=== PATIENT | female | born 1985 | race Caucasian/White ===

== ENCOUNTER 2020-01-05 11:53 | Emergency (ER) | payer OTHER, SELFPAY ==
[2020-01-05 12:09] VITALS: BP 113/74; PULSE 72; RESP 20; TEMP 36.8; O2SAT 100
--- NOTE | 2020-01-05 12:54 | ED.HA ---
HPI - Headache General Chief Complaint: Headache Stated Complaint: blurry vision Time Seen by Provider: 01/05/20 12:20 Source: patient and RN notes reviewed Mode of arrival: ambulatory Limitations: no limitations History of Present Illness HPI Narrative: Patient presents today complaining of a 1 hour history of right-sided headache. It began today as she was sitting in front of her computer. Pain is located behind the right eye, radiating to the right occiput, and into the right ear. The headache is almost fully resolved, but pain in the ear persists at a 4/10. Reports that upon onset of symptoms, she also had some bilateral blurred vision. This symptom has also fully resolved prior to arrival. Patient did drive herself to the clinic today. Patient has history of ocular migraines, but has not had one since 2014. She does not take any maintenance medications for migraines. She has not tried any interventions for her symptoms prior to arrival. This is not her worst headache ever. Blurred vision symptoms are consistent with previous migraines. She is having some mild photophobia as well. MD elicited complaint: migraine Related Data Home Medications Medication Instructions Recorded Confirmed dextroamphetamine-amphetamine 5 mg PO BID 01/05/20 01/05/20 [Adderall] Allergies Allergy/AdvReac Type Severity Reaction Status Date / Time Penicillins Allergy Intermediate rash Verified 01/05/20 12:16 melon Allergy Unknown Itching Verified 01/05/20 12:16 Review of Systems Review of Systems: Narrative: CONSTITUTIONAL: Denies body aches, fever, chills, or sweats. EYES: Denies redness, or discharge.+blurred vision-resolved, photophobia ENT: Denies rhinorrhea, congestion, sore throat. + Right ear pain CARDIOVASCULAR: Denies chest pain, palpitations, or edema. RESPIRATORY: Denies cough or dyspnea. GASTROINTESTINAL: Denies abdominal pain, nausea, vomiting, or diarrhea. GENITOURINARY: Denies dysuria or hematuria. SKIN: Denies rash, itching, or wounds. MUSCULOSKELETAL: Denies back pain, joint pain, or myalgia. NEUROLOGIC: Denies numbness, tingling, or weakness. +headache-resolved PSYCH: Denies depression or anxiety. [facility] Past Medical History Medical History (Updated 01/05/20 @ 13:11 by Shira Mccracken, [employer], ) ADHD Anxiety Depression Ocular migraine Comments At time of signature, I have reviewed and agree with nursing past medical, surgical, social and family history unless otherwise noted. Please see nursing chart for further information. There is no relevant family history pertinent to the presenting complaint Exam Narrative: Exam Narrative: GENERAL: Well-appearing, well-nourished, and in no acute distress. HEAD: Normocephalic, atraumatic. EYES: EOMI. PERRL. No redness or drainage. Conjunctivae normal. ENT: Mucous membranes pink and moist. Nares clear. No rhinorrhea. Right TM is slightly bulging with clear fluid without injection or redness. Left TM normal. Tenderness to right eustachian tube. Throat normal. Uvula midline. NECK: Normal AROM. Supple. 1 tender lymph node of the anterior cervical chain, at the TM joint. CHEST: No respiratory distress. Clear to auscultation. HEART: Regular rate and rhythm. No murmur appreciated. Normal peripheral pulses. MUSCULOSKELETAL: No bony tenderness. EXTREMITIES: Normal range of motion. No edema. SKIN: Warm, dry, no rash. Capillary refill normal. Normal skin turgor. NEURO: No focal deficits. Alert and oriented x3. Gait steady. PSYCH: Normal affect. No signs of depression or anxiety. Course Vital Signs Vital signs: Vital Signs Temperature 98.3 F 01/05/20 12:09 Pulse Rate 72 01/05/20 12:09 Respiratory Rate 01/05/20 12:09 Blood Pressure 113/74 01/05/20 12:09 Pulse Oximetry 100 01/05/20 12:09 Temperature 98.3 F 01/05/20 12:09 Pulse Rate 72 01/05/20 12:09 Respiratory Rate 01/05/20 12:09 Blood Pressure 113/74 01/05/20 12:09 Pul
== END 2020-01-05 13:06 | disposition home or self-care (01) ==
PROVIDERS: Emergency Provider Nurse Practitioner
DX: R51 Headache (principal); H69.91 Unspecified Eustachian tube disorder, right ear; H65.01 Acute serous otitis media, right ear; F90.9 Attention-deficit hyperactivity disorder, unspecified type
CPT/HCPCS: 99213; G0463

== ENCOUNTER 2021-02-12 16:42 | Outpatient (CLI) | payer OTHER, SELFPAY ==
--- NOTE | ~2021-02-12 | XR_ITS ---
EXAMINATION: XR chest 2V DATE: 02/12/2021 17:09 INDICATION: Preoperative clearance TECHNIQUE: frontal and lateral views of the chest were obtained. COMPARISON: None FINDINGS: The lungs are clear with no focal airspace opacities, pulmonary edema, pleural effusion or pneumothor ax. The cardiomediastinal silhouette is normal. Mild midthoracic spondylosis. IMPRESSION: 1. No acute cardiopulmonary disease. Reviewed, dictated and finalized at location B.
--- NOTE | ~2021-02-12 | MM_ITS ---
EXAMINATION: MM screening chon BI w belle HISTORY: Screening mammogram, family history of breast cancer in her mother at age 55. TECHNIQUE: Craniocaudal and mediolateral oblique 3-D tomosynthesis images were obtained and synthetic 2-D images were generated. CAD analysis was submitted and interpreted. COMPARISON: None, baseline BREAST PARENCHYMAL COMPOSITION: There are scattered areas of fibroglandular density. FINDINGS: There is no evidence of suspicious mass, calcification, or architectural distortion to sugg est malignancy in either breast. IMPRESSION: 1. No mammographic evidence of malignancy. 2. Recommend routine screening mammography beginning at age 40. BI-RADS Category 1: Negative Reviewed, dictated and finalized at location A.
== END 2021-02-12 16:43 ==
PROVIDERS: PCP Internal Medicine; Visit Provider Internal Medicine
DX: Z12.31 Encounter for screening mammogram for malignant neoplasm of breast (principal); Z20.818 Contact with and (suspected) exposure to other bacterial communicable diseases
CPT/HCPCS: 71046; 77063; 77067

== ENCOUNTER 2021-08-04 11:06 | Emergency (ER) | payer OTHER, SELFPAY ==
--- NOTE | 2021-08-04 11:13 | ED.URI ---
HPI - URI/Sore Throat General Chief Complaint: Upper Respiratory Infection Stated Complaint: Sore Throat,Body Aches,Fever Time Seen by Provider: 08/04/21 11:13 Source: patient Mode of arrival: ambulatory Limitations: no limitations History of Present Illness HPI Narrative: 36-year-old female presents with complaint of fever, chills, body aches, sore throat, congestion, fatigue, mild cough for 2 days. Patient did get her flu vaccine 3 months ago. Has been taking Tylenol to treat symptoms. Denies nausea vomiting diarrhea. All systems reviewed and negative except as noted above. Related Data Home Medications Medication Instructions Recorded Confirmed dextroamphetamine-amphetamine 5 mg PO BID 01/05/20 08/04/21 [Adderall] Allergies Allergy/AdvReac Type Severity Reaction Status Date / Time Penicillins Allergy Intermediate rash Verified 09/17/20 11:28 melon Allergy Unknown Itching Verified 09/17/20 11:28 Review of Systems Review of Systems: CONSTITUTIONAL: Reports fever, chills, or sweats. EYES: Denies visual changes, redness, or discharge. ENT: Reports rhinorrhea, congestion, sore throat. Denies otalgia. CARDIOVASCULAR: Denies chest pain, palpitations, or edema. RESPIRATORY: Reports cough. Denies dyspnea. GASTROINTESTINAL: Denies abdominal pain, nausea, vomiting, or diarrhea. GENITOURINARY: Denies dysuria or hematuria. SKIN: Denies rash or itching. MUSCULOSKELETAL: Denies back pain, joint pain, or myalgia. NEUROLOGIC: Reports headache. Denies numbness, or weakness. PSYCHIATRIC: Denies anxiety or depression. All other systems reviewed are negative, except as documented in HPI. [facility] Past Medical History Medical History (Updated 08/04/21 @ 11:34 by Genia Matt NP) ADHD Anxiety Depression Ocular migraine Surgical History Surgical History (Updated 09/17/20 @ 11:32 by Mayra Huerta) H/O tubal ligation Family History Family History (Updated 09/17/20 @ 11:33 by Mayra Huerta) Mother Diabetes mellitus Social History Social History (Updated 09/17/20 @ 11:33 by Mayra Huerta) Smoking status: Never smoker Alcohol intake: never Substance use: never Comments At time of signature, agree with nursing past medical, surgical, social and family history. There is no relevant family history pertinent to the presenting complaint. Exam Narrative: GENERAL: This is a well-nourished, well-developed patient, in no apparent distress. HEAD: normocephalic, atraumatic. EYES: PERRL. Sclera clear/white. Vision is grossly intact. EARS: External ears normal, auditory canals clear and without drainage, TMs normal without perforation. Hearing grossly intact. NOSE: External nose normal with no obvious nasal discharge, nares without redness, no rhinorrhea. THROAT: Mucous membranes moist, erythema to posterior pharynx with exudates. No tonsillar swelling. NECK: Neck supple, non-tender without lymphadenopathy, masses or thyromegaly. CARDIOVASCULAR: Regular rate and rhythm without murmurs, gallops, or rubs. RESPIRATORY: Clear to auscultation. Breath sounds equal bilaterally. No wheezes, rales, or rhonchi. SKIN: warm, Dry, intact with no suspicious lesions or rash, good texture and turgor. NEURO: awake, alert, and oriented to person, place and time. There were no obvious focal neurologic abnormalities. EXTREMITIES: Normal range of motion to all extremities. Course Course Level of Care: Express Care Visit Vital Signs Vital signs: Reviewed MDM - URI/Sore Throat MDM Narrative Medical decision making narrative: Patient is aware of diagnosis, understands and agrees to treatment plan. Anticipatory guidance given. Patient agrees to follow-up as directed and is aware of reasons to seek care at the emergency department. Portions of this record may have been created with voice recognition software Differential Diagnosis Differential diagnosis: Likely upper respiratory infection, sinusitis, viral infectio
[2021-08-04 11:28] VITALS: BP 109/72; PULSE 102; RESP 18; TEMP 36.4; O2SAT 99
== END 2021-08-04 11:39 | disposition home or self-care (01) ==
PROVIDERS: Emergency Provider Nurse Practitioner Family; PCP Internal Medicine
DX: J02.0 Streptococcal pharyngitis (principal); F90.9 Attention-deficit hyperactivity disorder, unspecified type
CPT/HCPCS: 87804; 87880; 99213; G0463

== ENCOUNTER 2022-05-19 09:58 | Emergency (ER) | payer BC, SELFPAY ==
[2022-05-19 10:06] VITALS: BP 117/71; PULSE 64; RESP 16; TEMP 36.6; O2SAT 100
--- NOTE | 2022-05-19 10:09 | ED.URI ---
HPI - URI/Sore Throat General Chief Complaint: Eye Problems Stated Complaint: rt eye irritation, sore throat Time Seen by Provider: 05/19/22 10:11 Source: patient and RN notes reviewed Mode of arrival: ambulatory Limitations: no limitations History of Present Illness HPI Narrative: 37-year-old female presents with concern for sore throat, worse on the right. She reports her right eye was red and matted shut this morning. She denies pain or itchiness of the eye. She reports fullness in her ears. She reports some nasal congestion rhinorrhea. She reports she has not taken any medication for her symptoms. She denies fever, aches, chills, sweats MD elicited complaint: sore throat Related Data Home Medications Medication Instructions Recorded Confirmed dextroamphetamine-amphetamine 5 mg 5 mg PO BID 01/05/20 05/19/22 tablet (Adderall) Allergies Allergy/AdvReac Type Severity Reaction Status Date / Time Penicillins Allergy Intermediate rash Verified 05/19/22 10:06 melon Allergy Unknown Itching Verified 05/19/22 10:06 Review of Systems Review of Systems: CONSTITUTIONAL: Denies malaise, chills, sweats, or fever. EYES: Denies visual changes. Reports right eye redness and discharge. ENT: Reports rhinorrhea, congestion, sore throat. Denies sinus pain, otalgia CARDIOVASCULAR: Denies chest pain, palpitations, or edema. RESPIRATORY: Denies cough. Denies dyspnea. GASTROINTESTINAL: Denies abdominal pain, nausea, vomiting, diarrhea SKIN: Denies rash or itching. MUSCULOSKELETAL: Denies myalgia. NEUROLOGIC: Denies headache. All systems reviewed & are unremarkable except as noted in HPI and below [facility] Past Medical History Medical History (Updated 05/19/22 @ 10:19 by Antonietta Jones NP) ADHD Anxiety Depression Ocular migraine Surgical History Surgical History (Updated 09/17/20 @ 11:32 by Mayra Huerta) H/O tubal ligation Family History Family History (Updated 09/17/20 @ 11:33 by Mayra Huerta) Mother Diabetes mellitus Social History Social History (Updated 09/17/20 @ 11:33 by Mayra Huerta) Smoking status: Never smoker Alcohol intake: never Substance use: never Comments At time of signature, agree with nursing past medical, surgical, social and family history. There is no relevant family history pertinent to the presenting complaint Exam Narrative: GENERAL: Well-appearing, well-nourished, and in no acute distress. HEAD: Normocephalic EYES: PERRLA, conjunctivae clear ENT: Nares clear, clear discharge. Mucous membranes moist. TM pearly gorman with dull light reflex bilaterally; no tragal tenderness. Oropharynx erythematous without lesions. Tonsils enlarged and without exudate, no drooling, no hoarseness, no trismus, uvula midline. NECK: Supple. No lymphadenopathy CHEST: Clear to auscultation, breath sounds equal. No wheezing, rhonchi, rales, or stridor. No respiratory distress, speaks in full sentences. HEART: Regular rate and rhythm. No murmur heard. SKIN: Warm, dry, no rash. NEURO: Alert and oriented x3. PSYCH: Normal mood and affect Course Course Emergency Course: Patient is aware of diagnosis, understands and agrees to treatment plan. Anticipatory guidance given. Patient agrees to follow-up as directed and is aware of reasons to seek care at the emergency department. Portions of this record may have been created with voice recognition software Level of Care: Express Care Visit Vital Signs Vital signs: Reviewed. MDM - URI/Sore Throat MDM Narrative Medical decision making narrative: Consideration of the following conditions may be warranted for the presenting problem, they are not final diagnoses: Bacterial conjunctivitis, allergic conjunctivitis, viral conjunctivitis, foreign body, blepharitis, chalazion, hordeolum, corneal abrasion, preseptal cellulitis, orbital cellulitis. No evidence of proptosis, ophthalmoplegia, vision loss, pain with eye movement. Exam findings show no
== END 2022-05-19 10:22 | disposition home or self-care (01) ==
PROVIDERS: Emergency Provider Nurse Practitioner; PCP Internal Medicine
DX: J06.9 Acute upper respiratory infection, unspecified (principal); H10.9 Unspecified conjunctivitis; F90.9 Attention-deficit hyperactivity disorder, unspecified type
CPT/HCPCS: 87081; 99213; G0463

== ENCOUNTER 2023-07-10 13:46 | Emergency (ER) | payer BC, SELFPAY ==
[2023-07-10 14:03] VITALS: BP 102/67; PULSE 134; RESP 20; TEMP 37.2; O2SAT 99
--- NOTE | 2023-07-10 14:38 | ED.URI ---
HPI - URI/Sore Throat General Chief Complaint: Upper Respiratory Infection Stated Complaint: sore throat Time Seen by Provider: 07/10/23 14:38 Source: patient Mode of arrival: ambulatory Limitations: no limitations History of Present Illness HPI Narrative: 38-year-old female presents with complaint of sore throat, fatigue, headache, left ear pain, nausea since yesterday. All systems reviewed and negative except as noted above. Related Data Home Medications Medication Instructions Recorded Confirmed dextroamphetamine-amphetamine 5 mg 5 mg PO BID 01/05/20 05/19/22 tablet (Adderall) Allergies Allergy/AdvReac Type Severity Reaction Status Date / Time Penicillins Allergy Intermediate rash Verified 07/10/23 14:21 melon Allergy Unknown Itching Verified 07/10/23 14:21 Review of Systems Review of Systems: CONSTITUTIONAL: Denies fever, chills, or sweats. Reports fatigue. EYES: Denies visual changes, redness, or discharge. ENT: Denies rhinorrhea, congestion . Reports sore throat, left ear pain. CARDIOVASCULAR: Denies chest pain, palpitations, or edema. RESPIRATORY: Denies cough or dyspnea. GASTROINTESTINAL: Denies abdominal pain, vomiting, or diarrhea. Reports nausea. GENITOURINARY: Denies dysuria or hematuria. SKIN: Denies rash or itching. MUSCULOSKELETAL: Denies back pain, joint pain, or myalgia. NEUROLOGIC: Denies headache, numbness, or weakness. PSYCHIATRIC: Denies anxiety or depression. All other systems reviewed are negative, except as documented in HPI. [facility] Past Medical History Medical History (Updated 07/10/23 @ 14:44 by Genia Matt NP) ADHD Anxiety Depression Ocular migraine Surgical History Surgical History (Updated 09/17/20 @ 11:32 by Mayra Huerta) H/O tubal ligation Family History Family History (Updated 09/17/20 @ 11:33 by Mayra Huerta) Mother Diabetes mellitus Social History Social History (Updated 09/17/20 @ 11:33 by Mayra Huerta) Smoking status: Never smoker Alcohol intake: never Substance use: never Comments At time of signature, agree with nursing past medical, surgical, social and family history. There is no relevant family history pertinent to the presenting complaint. Exam Narrative: GENERAL: This is a well-nourished, well-developed patient, Patient ill-appearing but no acute distress. HEAD: normocephalic, atraumatic. EYES: PERRL. Sclera clear/white. Vision is grossly intact. EARS: External ears normal, auditory canals clear and without drainage, TMs normal without perforation. Hearing grossly intact. NOSE: External nose normal with no obvious nasal discharge, nares without redness, no rhinorrhea. THROAT: Mucous membranes moist, Erythematous and swollen. No exudates. NECK: Neck supple, non-tender without lymphadenopathy, masses or thyromegaly. CARDIOVASCULAR: Regular rate and rhythm without murmurs, gallops, or rubs. RESPIRATORY: Clear to auscultation. Breath sounds equal bilaterally. No wheezes, rales, or rhonchi. SKIN: warm, Dry, intact with no suspicious lesions or rash, good texture and turgor. NEURO: awake, alert, and oriented to person, place and time. There were no obvious focal neurologic abnormalities. EXTREMITIES: No joint tenderness, effusion, or edema noted. Course Course Level of Care: Express Care Visit Vital Signs Vital signs: Vital Signs Temperature 37.2 C 07/10/23 14:03 Pulse Rate 134 H 07/10/23 14:03 Respiratory Rate 20 07/10/23 14:03 Blood Pressure 102/67 07/10/23 14:03 Pulse Oximetry 99 07/10/23 14:03 Oxygen Delivery Room Air 07/10/23 14:03 Temperature 37.2 C 07/10/23 14:03 Pulse Rate 134 H 07/10/23 14:03 Respiratory Rate 20 07/10/23 14:03 Blood Pressure 102/67 07/10/23 14:03 Pulse Oximetry 99 07/10/23 14:03 Oxygen Delivery Room Air 07/10/23 14:03 Reviewed MDM - URI/Sore Throat MDM Narrative Medical decision making narrative: Patient
== END 2023-07-10 14:50 | disposition home or self-care (01) ==
PROVIDERS: Emergency Provider Nurse Practitioner Family; PCP Internal Medicine
DX: J02.0 Streptococcal pharyngitis (principal); F90.9 Attention-deficit hyperactivity disorder, unspecified type
CPT/HCPCS: 87880; 99213; G0463

== ENCOUNTER 2024-01-19 11:53 | Outpatient (CLI) | payer BC, SELFPAY ==
--- NOTE | ~2024-01-19 | XR_ITS ---
XR shoulder LT min 2V Ordering provider: Julianne Zazueta, History: . Pain in left shoulder . Comparison: None. FINDINGS: BONES: No acute fracture or dislocation. JOINT SPACES: The acromioclavicular joint is normal. The glenohumeral joint is normal. SOFT TISSUES: Normal. IMPRESSION: No acute osseous abnormality left shoulder. Reviewed, dictated and finalized at location A.
== END 2024-01-19 11:54 | disposition home or self-care (01) ==
PROVIDERS: PCP Internal Medicine; Visit Provider Internal Medicine
DX: M25.512 Pain in left shoulder (principal)
CPT/HCPCS: 73030